=== PATIENT | male | born 1950 | race Caucasian/White ===

== ENCOUNTER → 2017-02-01 | Outpatient (CLI) | payer MEDICARE, BC, OTHER ==
[~2017-02-01] MED LIST: ACTOS30 MG PO; ALLOPURINOL300 MG PO; DIVALPROEX SOD500 M1 PO; FISH OIL 1,2001 EAC4 PO; FLOMAX0.4 MG PO; HALDOL0.5 MG PO; JANUVIA25 M1 PO; LISINOPRIL10 MG PO; LO-DOSE ASPIRIN81 M1 PO; NABUMETONE500 MG PO; NAPROSYN500 MG PO; NIASPAN,SLO-NI500 MG PO; ONE DAILY FOR1 EACH PO; PRAVASTATIN SOD80 MG PO; TERAZOSIN HCL2 MG PO; TRILIPIX135 MG PO
== END | disposition home or self-care (01) ==
LOC: CDC 09:48
DX: R97.20 Elevated prostate specific antigen [PSA] (principal)
CPT/HCPCS: 93000

== ENCOUNTER 2018-03-18 08:24 | Emergency (ER) | payer OTHER, BC ==
[~2018-03-18] VITALS: Ht 170.2 cm; Wt 119.7 kg
[2018-03-18] MEDS ORDERED: MOBIC7.5 MG PO (10:59)
[2018-03-18 12:39] VITALS: BP 112/80
== END 2018-03-18 12:39 | disposition home or self-care (01) ==
LOC: EME 08:24
DX: S43.401A Unspecified sprain of right shoulder joint, initial encounter (principal); W19.XXXA Unspecified fall, initial encounter; G10 Huntington's disease; Z91.81 History of falling; E78.5 Hyperlipidemia, unspecified; E11.9 Type 2 diabetes mellitus without complications; Z79.84 Long term (current) use of oral hypoglycemic drugs
CPT/HCPCS: 73030; 73060; 99281; 99283